=== PATIENT | female | born 1990 | race Caucasian/White ===

== ENCOUNTER 2020-06-30 23:46 | Emergency (ER) | payer MEDICAID ==
[~2020-06-30] VITALS: Ht 157.5 cm; Wt 59.1 kg
[2020-07-01 00:33] LABS: COVID AG,FIA SOURCE NASOPHARYNGEAL
[2020-07-01 01:05] LABS: BASOPHILS % (AUTO) 0.4 % (0.0-2.0); EOSINOPHILS % (AUTO) 0.3 % (1.0-6.0); HEMOGLOBIN 8.3 g/dL (12.0-16.0); LYMPHOCYTES % (AUTO) 26.8 % (22.0-44.0); MEAN CORPUSCULAR HEMOGLOBIN 24.3 pg (26.0-34.0); MEAN CORPUSCULAR HGB CONC 30.8 G/dL (31.0-37.0); MEAN CORPUSCULAR VOLUME 79 fL (80-100); MONOCYTES # (AUTO) 0.6 K/uL (0.1-1.0); MONOCYTES % (AUTO) 5.6 % (2.0-9.0); NEUTROPHILS # (AUTO) 7.5 K/uL (1.8-7.7); NEUTROPHILS % (AUTO) 66.9 % (40.0-70.0); PLATELET COUNT (AUTO) 526 K/uL (150-450); RED BLOOD CELL COUNT(AUTO) 3.41 MIL/uL (4.00-5.20)
[2020-07-01 01:08] LABS: ANION GAP 9 mmol/L (8-16); CALCIUM, TOTAL 9.1 mg/dL (8.8-10.5); CARBON DIOXIDE 28 mmol/L (22-29); CHLORIDE 103 mmol/L (98-107); CREATININE 0.61 mg/dL (0.60-1.30); GLOMERULAR FILTR. RATE CALC > 60 mL/min (>60); GLUCOSE,RANDOM 98 mg/dL (70-110); POTASSIUM 3.9 mmol/L (3.5-5.1); SODIUM SERUM 140 mmol/L (136-145); UREA NITROGEN, BLOOD 9 mg/dL (7-18)
[2020-07-01 01:14] LABS: ALANINE AMINOTRANSFERASE 15 U/L (12-78); ALBUMIN 3.7 g/dL (3.4-5.0); ALKALINE PHOSPHATASE 92 U/L (46-116); ASPARTATE AMINOTRANSFERASE 12 U/L (15-37); BILIRUBIN,TOTAL 0.4 mg/dL (0.1-1.0); TOTAL PROTEIN, SERUM 7.7 g/dL (6.4-8.2)
[2020-07-01 03:55] VITALS: BP 132/64
== END 2020-07-01 05:28 | disposition home or self-care (01) ==
LOC: EMS 23:49
DX: R51.9 Headache, unspecified (principal); F41.9 Anxiety disorder, unspecified; I10 Essential (primary) hypertension; F17.210 Nicotine dependence, cigarettes, uncomplicated; F19.90 Other psychoactive substance use, unspecified, uncomplicated; Z76.5 Malingerer [conscious simulation]; Z59.0 Homelessness; Z20.822 Contact with and (suspected) exposure to COVID-19
CPT/HCPCS: 80053; 85025; 87426; 99285; G0480

== ENCOUNTER 2020-07-01 16:35 | Inpatient (IN) | payer MEDICAID ==
[~2020-07-01] VITALS: Ht 157.5 cm; Wt 72.5 kg
[2020-07-01 17:34] LABS: BASOPHILS % (AUTO) 0.6 % (0.0-2.0); EOSINOPHILS % (AUTO) 0.4 % (1.0-6.0); HEMATOCRIT 24.5 % (36-46); HEMOGLOBIN 8.2 g/dL (12.0-16.0); LYMPHOCYTES # (AUTO) 2.8 K/uL (1.0-4.8); LYMPHOCYTES % (AUTO) 34.2 % (22.0-44.0); MEAN CORPUSCULAR HEMOGLOBIN 24.5 pg (26.0-34.0); MEAN CORPUSCULAR HGB CONC 33.7 G/dL (31.0-37.0); MEAN CORPUSCULAR VOLUME 73 fL (80-100); MONOCYTES # (AUTO) 0.5 K/uL (0.1-1.0); MONOCYTES % (AUTO) 5.6 % (2.0-9.0); NEUTROPHILS # (AUTO) 4.8 K/uL (1.8-7.7); NEUTROPHILS % (AUTO) 59.2 % (40.0-70.0); PLATELET COUNT (AUTO) 536 K/uL (150-450); RED BLOOD CELL COUNT(AUTO) 3.36 MIL/uL (4.00-5.20); RED CELL DISTRIBUTION WIDTH 15.3 % (11.5-14.5)
[2020-07-01 17:42] LABS: COVID AG,FIA SOURCE NASOPHARYNGEAL
[2020-07-01 17:56] LABS: ANION GAP 10 mmol/L (8-16); CALCIUM, TOTAL 9.1 mg/dL (8.8-10.5); CARBON DIOXIDE 29 mmol/L (22-29); CHLORIDE 105 mmol/L (98-107); CREATININE 0.72 mg/dL (0.60-1.30); GLOMERULAR FILTR. RATE CALC > 60 mL/min (>60); GLUCOSE,RANDOM 105 mg/dL (70-110); POTASSIUM 4.3 mmol/L (3.5-5.1); SODIUM SERUM 144 mmol/L (136-145); UREA NITROGEN, BLOOD 11 mg/dL (7-18)
[2020-07-01 18:04] LABS: B-TYPE NATRIURETIC PEPTIDE < 5 pg/mL (0-100)
[2020-07-01 18:08] LABS: ALANINE AMINOTRANSFERASE 18 U/L (12-78); ALBUMIN 3.7 g/dL (3.4-5.0); ALKALINE PHOSPHATASE 87 U/L (46-116); ASPARTATE AMINOTRANSFERASE 16 U/L (15-37); BILIRUBIN,TOTAL 0.3 mg/dL (0.1-1.0); HCG,QUANTITATIVE < 1 mIU/mL (0-6); TOTAL PROTEIN, SERUM 7.5 g/dL (6.4-8.2)
[2020-07-01 18:09] LABS: AMPHET/METH SCREEN,URINE POSITIVE (NEGATIVE); BARBITURATE SCREEN, URINE NEGATIVE (NEGATIVE); BENZODIAZEPINES SCREEN,URINE NEGATIVE (NEGATIVE); CANNABINOID SCREEN,URINE NEGATIVE (NEGATIVE); COCAINE SCREEN,URINE NEGATIVE (NEGATIVE); METHADONE SCREEN, URINE NEGATIVE (NEGATIVE); OPIATE SCREEN,URINE NEGATIVE (NEGATIVE)
[2020-07-01 18:11] LABS: PHENCYCLIDINE SCREEN,URINE NEGATIVE (NEGATIVE)
[2020-07-01 18:19] LABS: CREATINE KINASE, TOTAL ONLY 88 U/L (26-192)
[2020-07-01 18:55] LABS: APPEARANCE,URINE CLOUDY (CLEAR); BILIRUBIN,URINE NEGATIVE (NEGATIVE); GLUCOSE, URINE (UA) NEGATIVE (NEGATIVE); KETONES,URINE NEGATIVE (NEGATIVE); LEUKOCYTE ESTERASE ,URINE SMALL (NEGATIVE); NITRATE,URINE POSITIVE (NEGATIVE); OCCULT BLOOD,URINE SMALL (NEGATIVE); PH,URINE 7.5 (5.0-8.0); PROTEIN,URINE SEE CONFIRM (NEGATIVE); UROBILINOGEN,URINE 0.2 mg/dL (<=1.0)
[2020-07-01 19:13] LABS: BACTERIA,URINE Moderate /HPF (None Seen); RBC,URINE 0-2 /HPF (0-2); SQUAMOUS EPITHELIAL CELL,UR Few /LPF (None Seen); SULFOSALICYLIC ACID,URINE 3+ (Negative); WBC,URINE 51-100 /HPF (0-5)
[2020-07-01] MEDS ORDERED: CEPHALEXIN MONOHYDRATE 500 MG CAPSULE PO ONE (19:30)
[2020-07-02 01:01] VITALS: BP 129/80
[2020-07-02 06:10] LABS: CHOL/HDL RATIO 3.3 (3.9-5.7)
[2020-07-02 08:00] VITALS: BP 120/67
[2020-07-02] MEDS: CEPHALEXIN MONOHYDRATE 500 MG CAPSULE PO SCH ×3 (09:04→16:40)
[2020-07-02 16:09] VITALS: BP 123/82
[2020-07-02] MEDS: HALOPERIDOL 1 MG TABLET PO SCH (21:02)
[2020-07-03 08:00] VITALS: BP 128/72
[2020-07-03] MEDS: CEPHALEXIN MONOHYDRATE 500 MG CAPSULE PO SCH ×3 (08:12→16:34)
[2020-07-03 16:07] VITALS: BP 100/69
[2020-07-03] MEDS: ZOLPIDEM TARTRATE 10 MG TABLET PO PRN (20:22)
[2020-07-03] MEDS: HALOPERIDOL 1 MG TABLET PO SCH (20:22)
[2020-07-04 08:18] VITALS: BP 126/82
[2020-07-04] MEDS: CEPHALEXIN MONOHYDRATE 500 MG CAPSULE PO SCH ×3 (10:50→16:11)
[2020-07-04 16:00] VITALS: BP 111/67
[2020-07-04] MEDS: HALOPERIDOL 1 MG TABLET PO SCH (21:39)
[2020-07-05] MEDS: CEPHALEXIN MONOHYDRATE 500 MG CAPSULE PO SCH ×3 (08:21→16:39)
[2020-07-05 08:32] VITALS: BP 105/59
[2020-07-05] MEDS ORDERED: CloNIDine HCL 0.1 MG TABLET PO PRN (17:15)
[2020-07-05] MEDS ORDERED: DOCUSATE SODIUM 100 MG CAPSULE PO PRN (17:15)
[2020-07-05] MEDS ORDERED: MAGNESIUM HYDROXIDE SUSPENSION 30 ML UDCUP PO PRN (17:15)
[2020-07-05] MEDS ORDERED: GuaiFENesin/D-METHORPHAN [SUGAR-FREE] 200-20MG/10 ML SYRUP UDCUP PO PRN (17:15)
[2020-07-05] MEDS ORDERED: NICOTINE 14 MG/24 HOUR PATCH TD PRN (17:15)
[2020-07-05] MEDS ORDERED: ALBUTEROL SULFATE HFA 90 MCG/PUFF 8 GM INHALER IH PRN (17:15)
[2020-07-05] MEDS ORDERED: ONDANSETRON HCL 4 MG TABLET PO PRN (17:15)
[2020-07-05] MEDS ORDERED: PETROLATUM,WHITE 28 GM JELLY TP PRN (17:15)
[2020-07-05] MEDS ORDERED: LOPERAMIDE HCL 2 MG CAPSULE PO PRN (17:15)
[2020-07-05 18:56] VITALS: BP 100/59
[2020-07-05] MEDS: HALOPERIDOL 1 MG TABLET PO SCH (20:57)
[2020-07-06 06:26] VITALS: BP 111/84
[2020-07-06 08:00] VITALS: BP 120/77
[2020-07-06] MEDS: CEPHALEXIN MONOHYDRATE 500 MG CAPSULE PO SCH ×3 (08:26→16:09)
[2020-07-06 16:00] VITALS: BP 140/68
[2020-07-06] MEDS: HALOPERIDOL 1 MG TABLET PO SCH (20:36)
[2020-07-07 08:00] VITALS: BP 128/50
[2020-07-07] MEDS: CEPHALEXIN MONOHYDRATE 500 MG CAPSULE PO SCH ×3 (09:22→16:30)
[2020-07-07 16:48] VITALS: BP 117/66
[2020-07-07 17:13] VITALS: BP 120/72
[2020-07-07] MEDS: IBUPROFEN 400 MG TABLET PO PRN (17:13)
[2020-07-07] MEDS: MAG HYDROX/AL HYDROX/SIMETH ES 30 ML SUSPENSION UDCUP PO PRN (17:58)
[2020-07-07] MEDS: HALOPERIDOL 1 MG TABLET PO SCH (20:30)
[2020-07-08 05:50] VITALS: BP 115/71
[2020-07-08] MEDS: IBUPROFEN 400 MG TABLET PO PRN ×2 (05:54→14:55)
[2020-07-08] MEDS: LORazepam 2 MG TABLET PO PRN (05:54)
[2020-07-08 08:00] VITALS: BP 120/93
[2020-07-08] MEDS: CEPHALEXIN MONOHYDRATE 500 MG CAPSULE PO SCH ×3 (08:27→16:51)
[2020-07-08 14:54] VITALS: BP 116/84
[2020-07-08 16:00] VITALS: BP 117/61
[2020-07-08 17:41] LABS: COVID AG,FIA SOURCE NASOPHARYNGEAL
[2020-07-08] MEDS: HALOPERIDOL 1 MG TABLET PO SCH (20:38)
[2020-07-09] MEDS: LORazepam 2 MG TABLET PO PRN (03:13)
[2020-07-09 04:10] VITALS: BP 102/60
[2020-07-09] MEDS: IBUPROFEN 400 MG TABLET PO PRN ×2 (08:13→17:59)
[2020-07-09 16:53] VITALS: BP 123/65
[2020-07-09] MEDS: HALOPERIDOL 1 MG TABLET PO SCH (20:21)
[2020-07-10 09:58] VITALS: BP 113/62
[2020-07-10 16:17] VITALS: BP 146/85
[2020-07-10] MEDS: IBUPROFEN 400 MG TABLET PO PRN (16:17)
[2020-07-10] MEDS: MAG HYDROX/AL HYDROX/SIMETH ES 30 ML SUSPENSION UDCUP PO PRN (16:29)
[2020-07-10] MEDS: HALOPERIDOL 1 MG TABLET PO SCH (20:17)
[2020-07-11] MEDS: ZOLPIDEM TARTRATE 10 MG TABLET PO PRN (01:40)
[2020-07-11] MEDS: IBUPROFEN 400 MG TABLET PO PRN ×2 (01:40→15:28)
[2020-07-11 01:55] VITALS: BP 112/62
[2020-07-11 08:34] VITALS: BP 98/57
[2020-07-11 16:00] VITALS: BP 102/58
[2020-07-11 16:28] VITALS: BP 102/50
[2020-07-11] MEDS: HALOPERIDOL 5 MG TABLET PO PRN (17:20)
[2020-07-11] MEDS: HALOPERIDOL 1 MG TABLET PO SCH (20:56)
[2020-07-12 04:55] VITALS: BP 95/64
[2020-07-12 09:08] VITALS: BP 95/61
[2020-07-12 13:02] VITALS: BP 98/66
[2020-07-12] MEDS: IBUPROFEN 400 MG TABLET PO PRN (13:02)
[2020-07-12 16:11] VITALS: BP 107/66
[2020-07-12] MEDS: HALOPERIDOL 5 MG TABLET PO PRN (16:11)
[2020-07-12] MEDS: ACETAMINOPHEN 325 MG TABLET PO PRN (16:11)
[2020-07-12] MEDS: HALOPERIDOL 1 MG TABLET PO SCH (20:22)
[2020-07-13 02:40] VITALS: BP 120/68
[2020-07-13] MEDS: IBUPROFEN 400 MG TABLET PO PRN ×2 (02:47→15:46)
[2020-07-13 08:55] VITALS: BP 103/59
[2020-07-13 10:00] VITALS: BP 111/67
[2020-07-13] MEDS: ACETAMINOPHEN 325 MG TABLET PO PRN (10:04)
[2020-07-13 11:00] VITALS: BP 102/68
[2020-07-13] MEDS: CEPHALEXIN MONOHYDRATE 500 MG CAPSULE PO SCH ×2 (13:22→17:04)
[2020-07-13 16:00] VITALS: BP 107/71
[2020-07-13] MEDS: HALOPERIDOL 1 MG TABLET PO SCH (20:14)
[2020-07-14 00:30] VITALS: BP 112/53
[2020-07-14] MEDS: ZOLPIDEM TARTRATE 10 MG TABLET PO PRN ×2 (00:31→21:17)
[2020-07-14] MEDS: IBUPROFEN 400 MG TABLET PO PRN ×2 (00:32→14:28)
[2020-07-14] MEDS: CEPHALEXIN MONOHYDRATE 500 MG CAPSULE PO SCH ×3 (08:41→16:20)
[2020-07-14 08:48] VITALS: BP 111/59
[2020-07-14 09:03] LABS: % IRON SATURATION 3.7 % (22-44)
[2020-07-14 11:13] LABS: COVID AG,FIA SOURCE NASOPHARYNGEAL
[2020-07-14 14:28] VITALS: BP 116/68
[2020-07-14 16:39] VITALS: BP 101/63
[2020-07-14] MEDS: HALOPERIDOL 1 MG TABLET PO SCH (20:18)
[2020-07-15] MEDS: CEPHALEXIN MONOHYDRATE 500 MG CAPSULE PO SCH ×3 (08:09→16:56)
[2020-07-15 14:25] VITALS: BP 118/74
[2020-07-15] MEDS: IBUPROFEN 400 MG TABLET PO PRN (14:25)
[2020-07-15 16:36] VITALS: BP 99/68
[2020-07-15] MEDS: ACETAMINOPHEN 325 MG TABLET PO PRN (17:00)
[2020-07-15] MEDS: HALOPERIDOL 1 MG TABLET PO SCH (21:06)
[2020-07-15] MEDS: ZOLPIDEM TARTRATE 10 MG TABLET PO PRN (21:06)
[2020-07-16 08:30] VITALS: BP 105/68
[2020-07-16] MEDS: CEPHALEXIN MONOHYDRATE 500 MG CAPSULE PO SCH ×3 (08:40→16:41)
[2020-07-16] MEDS: IBUPROFEN 400 MG TABLET PO PRN ×2 (08:40→21:47)
[2020-07-16 12:31] VITALS: BP 150/76
[2020-07-16] MEDS: ACETAMINOPHEN 325 MG TABLET PO PRN (12:31)
[2020-07-16 16:00] VITALS: BP 117/65
[2020-07-16] MEDS: HALOPERIDOL 5 MG TABLET PO PRN (16:23)
[2020-07-16] MEDS: HALOPERIDOL 1 MG TABLET PO SCH (20:39)
[2020-07-17] MEDS: IBUPROFEN 400 MG TABLET PO PRN ×3 (07:54→20:25)
[2020-07-17 09:38] VITALS: BP 156/63
[2020-07-17 09:40] VITALS: BP 148/76
[2020-07-17] MEDS: CEPHALEXIN MONOHYDRATE 500 MG CAPSULE PO SCH ×3 (10:07→16:18)
[2020-07-17 10:40] VITALS: BP 136/74
[2020-07-17 18:41] VITALS: BP 105/62
[2020-07-17] MEDS: HALOPERIDOL 1 MG TABLET PO SCH (20:23)
[2020-07-17] MEDS: MAG HYDROX/AL HYDROX/SIMETH ES 30 ML SUSPENSION UDCUP PO PRN (20:25)
[2020-07-18] MEDS: IBUPROFEN 400 MG TABLET PO PRN ×3 (04:31→16:35)
[2020-07-18 04:57] VITALS: BP 100/57
[2020-07-18 08:22] VITALS: BP 106/56
[2020-07-18] MEDS: CEPHALEXIN MONOHYDRATE 500 MG CAPSULE PO SCH (08:49)
[2020-07-18 13:49] VITALS: BP 136/70
[2020-07-18 16:00] VITALS: BP 98/63
[2020-07-18] MEDS: HALOPERIDOL 1 MG TABLET PO SCH (20:24)
[2020-07-19 08:45] VITALS: BP 114/76
[2020-07-19 09:54] VITALS: BP 114/76
[2020-07-19] MEDS: IBUPROFEN 400 MG TABLET PO PRN ×2 (09:54→19:10)
[2020-07-19 10:54] VITALS: BP 110/82
[2020-07-19 19:43] VITALS: BP 110/70
[2020-07-19] MEDS: HALOPERIDOL 1 MG TABLET PO SCH (20:11)
[2020-07-20 12:40] VITALS: BP 111/65
[2020-07-20] MEDS: IBUPROFEN 400 MG TABLET PO PRN (12:44)
[2020-07-20 13:44] VITALS: BP 124/87
[2020-07-20 16:00] VITALS: BP 92/61
[2020-07-20] MEDS: MAG HYDROX/AL HYDROX/SIMETH ES 30 ML SUSPENSION UDCUP PO PRN (16:15)
[2020-07-20] MEDS: HALOPERIDOL 5 MG TABLET PO PRN (16:16)
[2020-07-20] MEDS: HALOPERIDOL 1 MG TABLET PO SCH (20:12)
[2020-07-20] MEDS: ACETAMINOPHEN 325 MG TABLET PO PRN (20:13)
[2020-07-21 00:39] VITALS: BP 113/65
[2020-07-21] MEDS: IBUPROFEN 400 MG TABLET PO PRN ×3 (00:39→20:27)
[2020-07-21 08:30] VITALS: BP 105/43
[2020-07-21 13:33] LABS: COVID AG,FIA SOURCE NASOPHARYNGEAL
[2020-07-21] MEDS: HALOPERIDOL 5 MG TABLET PO PRN (16:21)
[2020-07-21 17:00] VITALS: BP 102/66
[2020-07-21] MEDS: HALOPERIDOL 1 MG TABLET PO SCH (20:26)
[2020-07-22 08:45] VITALS: BP 100/56
[2020-07-22] MEDS: IBUPROFEN 400 MG TABLET PO PRN (08:48)
[2020-07-22] MEDS: ACETAMINOPHEN 325 MG TABLET PO PRN (08:48)
[2020-07-22] MEDS ORDERED: HALO2 PO (15:12)
[2020-07-22 17:08] VITALS: BP 106/88
== END 2020-07-22 17:25 | disposition home or self-care (01) | DRG 750 ==
LOC: EMS 16:35 → 3EC 22:33 → 3EI 07-05 10:59
PROVIDERS: ADMIT Psychiatry & Neurology Child & Adolescent Psychiatry; ATTEND Psychiatry & Neurology Child & Adolescent Psychiatry
DX: F20.0 Paranoid schizophrenia (principal); F15.90 Other stimulant use, unspecified, uncomplicated; F41.9 Anxiety disorder, unspecified; I10 Essential (primary) hypertension; N39.0 Urinary tract infection, site not specified; Z20.822 Contact with and (suspected) exposure to COVID-19; G92 Toxic encephalopathy; D64.9 Anemia, unspecified
CPT/HCPCS: 76700; 83540; 83550; 87086; 87426; 93005; 99285; G0480; Q0162